=== PATIENT | female | born 1995 | race Two or more races ===

== ENCOUNTER 2021-01-25 19:39 | Emergency (ER) | payer OTHER ==
[~2021-01-25] VITALS: Ht 162.6 cm; Wt 72.0 kg
[2021-01-25 19:56] VITALS: BP 124/94
--- NOTE | 2021-01-25 19:59 | NUR ---
COVID SWAB SENT TO LAB FROM TRIAGE.
--- NOTE | 2021-01-25 20:10 | NUR ---
Patient given discharge instructions and they have confirmed that they understand the instructions. Patient ambulatory with steady gait. NAD, all questions answered appropriately, denies additional needs at this time. No personal belongings left in room after discharge.
== END 2021-01-25 20:11 | disposition home or self-care (01) ==
LOC: ED 20:05
DX: Z00.00 Encounter for general adult medical examination without abnormal findings (principal); Z20.822 Contact with and (suspected) exposure to COVID-19
CPT/HCPCS: 99283; U0003; U0005

== ENCOUNTER 2021-01-30 19:13 | Emergency (ER) | payer OTHER ==
[~2021-01-30] VITALS: Ht 162.6 cm; Wt 62.2 kg
[2021-01-30 20:48] VITALS: BP 118/78
== END 2021-01-30 20:51 | disposition home or self-care (01) ==
LOC: ED 19:45
DX: Z20.822 Contact with and (suspected) exposure to COVID-19 (principal)
CPT/HCPCS: 99283; U0003; U0005